=== PATIENT | female | born 1975 | race Caucasian/White ===

== ENCOUNTER → 2021-03-12 12:26 | Outpatient (BNVA) | payer OTHER, SELFPAY | PROVIDERS: PCP Internal Medicine; Visit Provider Physician Assistant | DX: E66.01 Morbid (severe) obesity due to excess calories (principal); K21.9 Gastro-esophageal reflux disease without esophagitis; K59.00 Constipation, unspecified; D64.9 Anemia, unspecified; M54.9 Dorsalgia, unspecified; G89.29 Other chronic pain | CPT/HCPCS: 99202 ==

== ENCOUNTER 2021-10-30 10:54 | Outpatient (REF) | payer OTHER, SELFPAY ==
[2021-10-30 13:15] LABS: Binax Internal Control QC Valid; Binax Now Covid-19 Ag Positive (Negative)
== END 2021-10-30 10:55 | disposition home or self-care (01) ==
LOC: HO.LAB 10:54
PROVIDERS: Visit Provider Internal Medicine
DX: Z20.822 Contact with and (suspected) exposure to COVID-19 (principal)
CPT/HCPCS: 36415; C9803